=== PATIENT | female | born 1995 | race Caucasian/White ===

== ENCOUNTER 2020-02-29 13:24 | Outpatient (REF) | payer BC, SELFPAY | END 2020-02-29 13:25 | disposition home or self-care (01) | LOC: HO.LAB 13:24 | PROVIDERS: Visit Provider Internal Medicine | DX: Z20.822 Contact with and (suspected) exposure to COVID-19 (principal) | CPT/HCPCS: 36415; C9803; U0003 ==

== ENCOUNTER 2024-12-11 13:40 | Outpatient (AMB) | payer OTHER, SELFPAY ==
--- NOTE | 2024-12-11 13:48 | MHC.OFFVIS ---
Intake Visit Reasons: CIC and ABD Pains Allergies No Known Allergies Allergy (Verified 12/07/24 08:09) HPI Comments Details: 29 y.o F with PMH of who is here for 2nd opinion for severe constipation. Pt has been seen by [facility] (Dr Chavez) and based on work up so far has been diagnosed with dyssynergic defecation. Was referred to Pelvic PT but unfortunately the center she was referred to, do not accomodate pelvic floor PT. Pt reports years of chronic constipation assoc with lower abd pressure with burning but does not necessarily change with defecation. Lately has been having abd cramping reminiscent of menstrual cramps but without menstruation. Also with nausea with occ vomiting. Interestingly abd pain starts within minutes of eating, has early satiety and nausea. Has been avoiding to eat as pain better when she doesnt eat. However also shares that she has been dealing with ARFID since she was 12. Declined a weight check today. Diet: protein bar, 32 oz of water. minimal fruits and vegetables. [facility] Medical History (Updated 12/11/24 @ 17:15 by Renuka Bass MD) Acute bronchitis, unspecified Acute sinusitis, unspecified Other specified diseases of anus and rectum Chronic idiopathic constipation Irritable bowel syndrome with constipation Review of Systems Const All systems reviewed & are unremarkable except as noted in HPI and below Physical Exam Exam Exam: No apparent distress Thin, nonicteric Abdomen soft, nondistended Alert and oriented x3, normal gait Assessment & Plan Assessment & Plan (1) Constipation by outlet obstruction: Code(s): K59.02 - Outlet dysfunction constipation Category: Medical (2) Avoidant-restrictive food intake disorder (ARFID): Code(s): F50.82 - Avoidant/restrictive food intake disorder Category: Medical (3) Chronic idiopathic constipation: Code(s): K59.04 - Chronic idiopathic constipation Category: Medical (4) Generalized postprandial abdominal pain: Code(s): R10.84 - Generalized abdominal pain Category: Medical (5) Early satiety: Code(s): R68.81 - Early satiety Category: Medical (6) Nausea & vomiting: Code(s): R11.2 - Nausea with vomiting, unspecified Category: Medical Plan Reviewed with the pt that based on upper GI symptom description strongly suspect that also has delayed gastric emptying vs impaired accomodation. Can not exclude ARFID compounding this. Will trial motegrity to help benefit both gastric motility as well as constipation. Pt was also encouraged to improver hydration and fiber intake to add bulk to stool. Consistent eating pattern and routine will be beneficial as well. Close follow up 4 weeks Medications: New prucalopride (Motegrity) 2 mg (2 x 1 mg) PO DAILY 180 tabs 0RF 90 days Coding Level of Care Code New Pt Level 4 (58785) Complex EM visit Add On G2211 Diagnoses Constipation by outlet obstruction K59.02 Avoidant-restrictive food intake disorder (ARFID) F50.82 Chronic idiopathic constipation K59.04 Generalized postprandial abdominal pain R10.84 Early satiety R68.81 Nausea & vomiting R11.2
== END 2024-12-11 14:18 | disposition home or self-care (01) ==
PROVIDERS: PCP Internal Medicine; Visit Provider Internal Medicine
DX: K59.02 Outlet dysfunction constipation (principal); F50.82 Avoidant/restrictive food intake disorder; K59.04 Chronic idiopathic constipation; R10.84 Generalized abdominal pain; R68.81 Early satiety; R11.2 Nausea with vomiting, unspecified
CPT/HCPCS: 99204; G2211